=== PATIENT | female | born 1960 | race Caucasian/White ===

== ENCOUNTER 2018-04-26 15:45 | Emergency (ER) | payer MEDICARE, MEDICAID, OTHER ==
[2018-04-26] MEDS: ONDANSETRON 4 MG INJ IV ×2 (15:56→17:39)
[2018-04-26] MEDS: HYDROmorphONE 2 MG/ML SYG IV ×3 (15:57→20:16)
[2018-04-26] MEDS: DIPHTH/TET/ACEL PERTUSS (ADULT) 0.5 ML VIAL IM* (15:59)
[2018-04-26] MEDS: SOD CHLORIDE 0.9% 1,000 ML IV (15:59)
[2018-04-26 16:13] LABS: ADD MAN DIFF? NO
[2018-04-26 16:15] LABS: ABNORMAL IP MESSAGE 1; BASOPHIL # 0.1 10^3/ul (0.0-0.1); EOSINOPHILS # 0.3 10^3/ul (0.0-0.5); EOSINOPHILS % 3.2 % (0.0-7.0); HEMATOCRIT 40.4 % (37.0-47.0); HEMOGLOBIN 12.7 g/dl (12.0-16.0); LYMPHOCYTES # 1.3 10^3/ul (0.8-2.9); LYMPHOCYTES % 12.7 % (15.0-51.0); MEAN CORPUSCULAR HEMOGLOBIN 24.1 pg (29.0-33.0); MEAN CORPUSCULAR HGB CONC 31.4 g/dl (32.0-37.0); MEAN CORPUSCULAR VOLUME 76.8 fl (82.0-101.0); MEAN PLATELET VOLUME 11.3 fl (7.4-10.4); MONOCYTE # 1.1 10^3/ul (0.3-0.9); NEUTROPHIL # 7.1 10^3/ul (1.6-7.5); NEUTROPHILS % 71.7 % (39.0-77.0); PLATELET COUNT 179 10^3/UL (140-415); RED BLOOD COUNT 5.26 10^6/ul (4.20-5.40); RED CELL DISTRIBUTION WIDTH 19.3 % (11.5-14.5)
[2018-04-26 16:24] LABS: POSITIVE DIFF @See below
[2018-04-26 16:40] LABS: INR 1.11; PROTIME 14.5 Sec (11.9-14.9); PT RATIO 1.1
[2018-04-26 16:41] LABS: PARTIAL THROMBOPLASTIN TIME 33.3 Sec (25.0-35.0)
[2018-04-26 16:51] LABS: ANION GAP 14 (8-16); BLOOD UREA NITROGEN 13 mg/dl (7-20); CALCIUM 9.6 mg/dl (8.4-10.2); CARBON DIOXIDE 29 mmol/L (21-31); CHLORIDE 105 mmol/L (97-110); CREATININE 0.76 mg/dl (0.44-1.00); GLUCOSE 116 mg/dl (70-220); SODIUM 144 mmol/L (135-144)
[2018-04-26] MEDS: HYDROmorphONE 1 MG/5 ML IV SYRINGE IV ×2 (17:45→18:54)
== END 2018-04-26 20:42 | disposition short-term general hospital (02) ==
LOC: E/R 15:45
DX: S82.141A Displaced bicondylar fracture of right tibia, initial encounter for closed fracture (principal); S82.831A Other fracture of upper and lower end of right fibula, initial encounter for closed fracture; S00.03XA Contusion of scalp, initial encounter; I10 Essential (primary) hypertension; F17.210 Nicotine dependence, cigarettes, uncomplicated; V03.10XA Pedestrian on foot injured in collision with car, pick-up truck or van in traffic accident, initial encounter; Z79.84 Long term (current) use of oral hypoglycemic drugs
CPT/HCPCS: 29505; 70450; 71045; 72170; 73550; 73562; 73590; 73610-RT; 73630; 80048; 85025; 85610; 85730; 90471; 90715; 96374; 96375; 96376; 99285-25

== ENCOUNTER 2018-06-10 15:14 | Inpatient (IN) | payer MEDICARE, OTHER, MEDICAID ==
[2018-06-10] MEDS: SODIUM CHLORIDE 0.9% 1L BAG IV* (16:25)
[2018-06-10] MEDS: ONDANSETRON 4 MG INJ IV (16:25)
[2018-06-10] MEDS: PIPER-TAZO 3.375 GM IV (PMX) 100 ML IVPB (16:25)
[2018-06-10] MEDS: HYDROmorphONE 2 MG/ML SYG IV ×2 (16:26→18:21)
[2018-06-10 16:28] LABS: ADD MAN DIFF? NO
[2018-06-10 16:30] LABS: WHITE BLOOD COUNT 7.2 10^3/ul (4.8-10.8)
[2018-06-10 16:30] LABS: BASOPHILS % 0.6 % (0.0-2.0); EOSINOPHILS % 0.1 % (0.0-7.0); HEMATOCRIT 27.1 % (37.0-47.0); LYMPHOCYTES # 0.6 10^3/ul (0.8-2.9); LYMPHOCYTES % 8.5 % (15.0-51.0); MEAN CORPUSCULAR HGB CONC 29.5 g/dl (32.0-37.0); MEAN PLATELET VOLUME 10.3 fl (7.4-10.4); MONOCYTE # 0.5 10^3/ul (0.3-0.9); MONOCYTES % 7.1 % (0.0-11.0); NEUTROPHILS % 83.3 % (39.0-77.0); PLATELET COUNT 282 10^3/UL (140-415); RED BLOOD COUNT 3.08 10^6/ul (4.20-5.40); RED CELL DISTRIBUTION WIDTH 16.5 % (11.5-14.5)
[2018-06-10 16:49] LABS: ALANINE AMINOTRANSFERASE 22 IU/L (13-69); ALKALINE PHOSPHATASE 160 IU/L (42-121); ANION GAP 12 (8-16); ASPARTATE AMINO TRANSFERASE 34 IU/L (15-46); BILIRUBIN,INDIRECT 0.6 mg/dl (0-1.1); BILIRUBIN,TOTAL 0.6 mg/dl (0.2-1.3); BLOOD UREA NITROGEN 18 mg/dl (7-20); CALCIUM 8.4 mg/dl (8.4-10.2); CARBON DIOXIDE 23 mmol/L (21-31); CHLORIDE 107 mmol/L (97-110); CREATININE 0.63 mg/dl (0.44-1.00); GLUCOSE 266 mg/dl (70-220); INR 1.22; POTASSIUM 4.3 mmol/L (3.5-5.1); PROTIME 15.6 Sec (11.9-14.9); PT RATIO 1.2; SODIUM 138 mmol/L (135-144)
[2018-06-10 16:50] LABS: ALBUMIN/GLOBULIN RATIO 1.03; PARTIAL THROMBOPLASTIN TIME 33.3 Sec (25.0-35.0); TOTAL PROTEIN 5.9 g/dl (6.1-8.1)
[2018-06-10 16:54] LABS: LACTIC ACID 2.8 mmol/L (0.5-2.0)
[2018-06-10 17:00] LABS: TROPONIN-I < 0.010 ng/ml (0.000-0.120)
[2018-06-10] MEDS: VANCOMYCIN 1 GM (PMX) 250 ML IVPB (17:15)
[2018-06-10 19:00] LABS: LACTIC ACID 1.5 mmol/L (0.5-2.0)
[2018-06-10] MEDS ORDERED: ONDANSETRON 4 MG INJ IV (20:00)
[2018-06-10] MEDS ORDERED: ACETAMINOPHEN 325 MG TAB PO ×2 (20:00→22:30)
[2018-06-10 20:48] LABS: LACTIC ACID 1.9 mmol/L (0.5-2.0)
[2018-06-10] MEDS ORDERED: HYDROCODONE/APAP (5/325) TAB PO (22:30)
[2018-06-10] MEDS ORDERED: DEXTROSE 50% 50 ML SYRINGE IV ×2 (23:00)
[2018-06-10] MEDS ORDERED: GLUCAGON 1 MG INJ IM (23:00)
[2018-06-10] MEDS ORDERED: GLUCOSE GEL 15 GRAM TUBE BUCCAL (23:00)
[2018-06-10] MEDS ORDERED: GLUCOSE GEL 15 GRAM TUBE PO ×2 (23:00)
[2018-06-10] MEDS: HYDROCODONE/APAP (5/325) TAB PO (23:00)
[2018-06-10] MEDS: INSULIN ASPART [NOVOLOG] 3 ML PEN SC (23:24)
[2018-06-11] MEDS: ACCU-CHEK XX (02:19)
[2018-06-11] MEDS: morphine 4 MG/ML VIAL IV (02:37)
[2018-06-11] MEDS: HYDROCODONE/APAP (5/325) TAB PO ×5 (05:10→21:43)
[2018-06-11] MEDS ORDERED: HYDROCODONE/APAP (5/325) TAB PO (05:30)
[2018-06-11] MEDS: INSULIN ASPART [NOVOLOG] 3 ML PEN SC ×4 (08:01→20:50)
[2018-06-11] MEDS: AMLODIPINE 2.5 MG TAB PO (09:00)
[2018-06-11] MEDS: BENAZEPRIL 20 MG TAB PO (09:00)
[2018-06-11] MEDS: metFORMIN 500 MG TAB PO ×2 (12:25→17:24)
[2018-06-11 12:41] LABS: ADD MAN DIFF? NO
[2018-06-11 12:43] LABS: ABNORMAL IP MESSAGE 1; BASOPHIL # 0.1 10^3/ul (0.0-0.1); BASOPHILS % 1.4 % (0.0-2.0); EOSINOPHILS # 0.5 10^3/ul (0.0-0.5); EOSINOPHILS % 8.4 % (0.0-7.0); HEMATOCRIT 25.1 % (37.0-47.0); HEMOGLOBIN 7.1 g/dl (12.0-16.0); LYMPHOCYTES # 0.6 10^3/ul (0.8-2.9); LYMPHOCYTES % 9.6 % (15.0-51.0); MEAN CORPUSCULAR HEMOGLOBIN 25.6 pg (29.0-33.0); MEAN CORPUSCULAR HGB CONC 28.3 g/dl (32.0-37.0); MEAN CORPUSCULAR VOLUME 90.6 fl (82.0-101.0); MONOCYTE # 0.6 10^3/ul (0.3-0.9); MONOCYTES % 9.4 % (0.0-11.0); NEUTROPHIL # 4.1 10^3/ul (1.6-7.5); NEUTROPHILS % 70.7 % (39.0-77.0); PLATELET COUNT 228 10^3/UL (140-415); RED BLOOD COUNT 2.77 10^6/ul (4.20-5.40); RED CELL DISTRIBUTION WIDTH 16.3 % (11.5-14.5)
[2018-06-11 12:43] LABS: WHITE BLOOD COUNT 5.9 10^3/ul (4.8-10.8)
[2018-06-11 12:46] LABS: POSITIVE DIFF @See below
[2018-06-11 13:00] LABS: LACTIC ACID 1.2 mmol/L (0.5-2.0)
[2018-06-11 13:02] LABS: ALANINE AMINOTRANSFERASE 22 IU/L (13-69); ALKALINE PHOSPHATASE 140 IU/L (42-121); ANION GAP 9 (8-16); ASPARTATE AMINO TRANSFERASE 35 IU/L (15-46); BILIRUBIN,INDIRECT 0.4 mg/dl (0-1.1); BILIRUBIN,TOTAL 0.4 mg/dl (0.2-1.3); BLOOD UREA NITROGEN 12 mg/dl (7-20); CALCIUM 8.1 mg/dl (8.4-10.2); CARBON DIOXIDE 24 mmol/L (21-31); CHLORIDE 109 mmol/L (97-110); CREATININE 0.67 mg/dl (0.44-1.00); GLUCOSE 206 mg/dl (70-220); IRON < 10 ug/dl (35-150); POTASSIUM 4.1 mmol/L (3.5-5.1); SODIUM 138 mmol/L (135-144)
[2018-06-11 13:03] LABS: ALBUMIN 2.8 g/dl (3.3-4.9); ALBUMIN/GLOBULIN RATIO 0.96; TOTAL PROTEIN 5.7 g/dl (6.1-8.1)
[2018-06-11 13:10] LABS: TOTAL IRON BINDING CAPACITY 326 ug/dl (241-421)
[2018-06-11 18:39] LABS: FERRITIN 21.6 ng/ml (11.1-264.0)
[2018-06-11] MEDS: CITALOPRAM 20 MG TAB PO (20:44)
[2018-06-11] MEDS: ATORVASTATIN 10 MG TAB PO (20:44)
[2018-06-12] MEDS: HYDROCODONE/APAP (5/325) TAB PO ×4 (01:54→21:18)
[2018-06-12] MEDS: ACCU-CHEK XX (02:00)
[2018-06-12] MEDS: metFORMIN 500 MG TAB PO ×3 (08:21→17:55)
[2018-06-12] MEDS: AMLODIPINE 2.5 MG TAB PO (08:21)
[2018-06-12] MEDS: BENAZEPRIL 20 MG TAB PO (08:21)
[2018-06-12] MEDS: INSULIN ASPART [NOVOLOG] 3 ML PEN SC ×4 (08:22→21:00)
[2018-06-12] MEDS: NA PHOSPHATE/BIPHOS 133 ML ENEMA PR (11:12)
[2018-06-12] MEDS: SOD FERRIC GLUC COMPLX 125 MG in SOD CHLORIDE 0.9% 100 ML IVPB (14:52)
[2018-06-12] MEDS: ATORVASTATIN 10 MG TAB PO (21:17)
[2018-06-12] MEDS: CITALOPRAM 20 MG TAB PO (21:17)
[2018-06-13] MEDS: ACCU-CHEK XX (01:35)
[2018-06-13] MEDS: HYDROCODONE/APAP (5/325) TAB PO ×4 (03:48→18:31)
[2018-06-13] MEDS: metFORMIN 500 MG TAB PO ×3 (08:26→18:18)
[2018-06-13] MEDS: AMLODIPINE 2.5 MG TAB PO (08:27)
[2018-06-13] MEDS: BENAZEPRIL 20 MG TAB PO (08:27)
[2018-06-13] MEDS: INSULIN ASPART [NOVOLOG] 3 ML PEN SC ×5 (08:29→20:43)
[2018-06-13] MEDS: POLYETHYLENE GLYCOL 17 GM PACKET PO (12:43)
[2018-06-13] MEDS: LIDOCAINE 1% (MDV) 10 ML INJ (17:38)
[2018-06-13] MEDS: SOD FERRIC GLUC COMPLX 125 MG in SOD CHLORIDE 0.9% 100 ML IVPB (18:18)
[2018-06-13 18:46] LABS: FLD MN% 73.8 %; FLD PMN% 26.2 %; FLD RBC 0 /uL; FLD WBC 107 /cmm
[2018-06-13 18:57] LABS: FLD CLARITY HAZY; FLD COLOR YEL
[2018-06-13 18:57] LABS: FLD TYPE ASCITES FLUID
[2018-06-13] MEDS: ATORVASTATIN 10 MG TAB PO (20:44)
[2018-06-13] MEDS: NYSTATIN 15 GM CR TOP (20:44)
[2018-06-13] MEDS: CITALOPRAM 20 MG TAB PO (20:44)
[2018-06-13] MEDS: INSULIN DETEMIR [LEVEMIR] (100 UNITS/ML) SYG SC (20:45)
[2018-06-14] MEDS: ACCU-CHEK XX (02:00)
[2018-06-14] MEDS: HYDROCODONE/APAP (5/325) TAB PO ×5 (02:04→22:02)
[2018-06-14 05:00] LABS: ADD MAN DIFF? NO
[2018-06-14 05:07] LABS: BASOPHIL # 0.1 10^3/ul (0.0-0.1); EOSINOPHILS # 0.3 10^3/ul (0.0-0.5); EOSINOPHILS % 3.2 % (0.0-7.0); HEMATOCRIT 27.2 % (37.0-47.0); LYMPHOCYTES # 0.8 10^3/ul (0.8-2.9); LYMPHOCYTES % 10.1 % (15.0-51.0); MEAN CORPUSCULAR HGB CONC 29.4 g/dl (32.0-37.0); MEAN PLATELET VOLUME 10.7 fl (7.4-10.4); MONOCYTE # 0.6 10^3/ul (0.3-0.9); MONOCYTES % 7.8 % (0.0-11.0); NEUTROPHIL # 6.2 10^3/ul (1.6-7.5); NEUTROPHILS % 77.7 % (39.0-77.0); PLATELET COUNT 270 10^3/UL (140-415); RED CELL DISTRIBUTION WIDTH 16.5 % (11.5-14.5)
[2018-06-14 05:34] LABS: ALANINE AMINOTRANSFERASE 13 IU/L (13-69); ALBUMIN 2.7 g/dl (3.3-4.9); ALBUMIN/GLOBULIN RATIO 0.87; ALKALINE PHOSPHATASE 139 IU/L (42-121); ANION GAP 10 (8-16); ASPARTATE AMINO TRANSFERASE 19 IU/L (15-46); BILIRUBIN,INDIRECT 0.4 mg/dl (0-1.1); BILIRUBIN,TOTAL 0.4 mg/dl (0.2-1.3); BLOOD UREA NITROGEN 10 mg/dl (7-20); CALCIUM 8.1 mg/dl (8.4-10.2); CARBON DIOXIDE 23 mmol/L (21-31); CHLORIDE 107 mmol/L (97-110); CREATININE 0.55 mg/dl (0.44-1.00); GLUCOSE 124 mg/dl (70-220); POTASSIUM 3.8 mmol/L (3.5-5.1); SODIUM 136 mmol/L (135-144); TOTAL PROTEIN 5.8 g/dl (6.1-8.1)
[2018-06-14] MEDS: INSULIN ASPART [NOVOLOG] 3 ML PEN SC ×8 (07:50→21:00)
[2018-06-14] MEDS: metFORMIN 500 MG TAB PO ×3 (08:46→18:12)
[2018-06-14] MEDS: BENAZEPRIL 20 MG TAB PO (08:47)
[2018-06-14] MEDS: POLYETHYLENE GLYCOL 17 GM PACKET PO (08:47)
[2018-06-14] MEDS: NYSTATIN 15 GM CR TOP ×2 (08:47→21:45)
[2018-06-14] MEDS: AMLODIPINE 2.5 MG TAB PO (08:47)
[2018-06-14] MEDS: FUROSEMIDE 20 MG TAB PO (13:16)
[2018-06-14] MEDS: SPIRONOLACTONE 50 MG TAB PO (15:19)
[2018-06-14] MEDS ORDERED: ONDANSETRON 4 MG INJ IV (15:30)
[2018-06-14 18:07] LABS: HEPATITIS B SURFACE ANTIGEN NEGATIVE (NEGATIVE)
[2018-06-14] MEDS: SOD FERRIC GLUC COMPLX 125 MG in SOD CHLORIDE 0.9% 100 ML IVPB (18:12)
[2018-06-14 18:24] LABS: HEPATITIS C VIRAL ANTIBODY NEGATIVE (NEGATIVE)
[2018-06-14 18:25] LABS: HEPATITIS B SURFACE ANTIBODY NEGATIVE (NEGATIVE)
[2018-06-14 18:25] LABS: HEPATITIS B CORE ANTIBODY NEGATIVE (NEGATIVE)
[2018-06-14] MEDS: CITALOPRAM 20 MG TAB PO (21:40)
[2018-06-14] MEDS: ATORVASTATIN 10 MG TAB PO (21:41)
[2018-06-14] MEDS: INSULIN DETEMIR [LEVEMIR] (100 UNITS/ML) SYG SC (21:47)
[2018-06-15] MEDS ORDERED: PANTOPRAZOLE (EC) 40 MG TAB PO (06:00)
[2018-07-01 14:04] LABS: ANA PATTERN SPECKLED; ANA SCREEN POSITIVE (NEGATIVE); MITOCHONDRIAL TB NEGATIVE (NEGATIVE); SMOOTH MUSCLE AB SCREEN NEGATIVE (NEGATIVE)
== END 2018-06-14 23:00 | DRG 556 ==
LOC: E/R 15:14 → MS1 19:49
PROC: 0W9G3ZZ Drainage of Peritoneal Cavity, Percutaneous Approach (ICD-10-PCS; principal; 2018-06-13)
DX: M79.604 Pain in right leg (principal); R18.8 Other ascites; E11.9 Type 2 diabetes mellitus without complications; I10 Essential (primary) hypertension; K59.00 Constipation, unspecified; Z87.81 Personal history of (healed) traumatic fracture; K74.60 Unspecified cirrhosis of liver; D50.9 Iron deficiency anemia, unspecified; F32.9 Major depressive disorder, single episode, unspecified
CPT/HCPCS: 36415; 71045; 73590; 74018; 76705; 80053; 82042; 82728; 82962; 83540; 83605; 84484; 85025; 85610; 85730; 86038; 86255; 86376; 86704; 86706; 86708; 86709; 86803; 87040; 87070; 87081; 87102; 87116; 87340; 89051; 93005; 93971; 96374; 96375; 96376; 97110; 97163; 99285-25